=== PATIENT | male | born 1945 | race Caucasian/White ===

== ENCOUNTER → 2019-02-16 | Outpatient (CLI) | payer OTHER, BC | LOC: FIMAGING 13:47 | PROVIDERS: ATTEND Internal Medicine | DX: M79.89 Other specified soft tissue disorders (principal) ==

== ENCOUNTER → 2019-02-19 | Outpatient (CLI) | payer OTHER, BC | LOC: CIMAGING 17:43 | PROVIDERS: ATTEND Internal Medicine | DX: M25.472 Effusion, left ankle (principal); R60.9 Edema, unspecified | CPT/HCPCS: 93971-PO ==